=== PATIENT | female | born 1960 | race Caucasian/White ===

== ENCOUNTER 2021-10-09 14:38 | Inpatient (IN) | payer OTHER ==
[~2021-10-09 14:38] MED LIST: Iopamidol 370 76% 100 ML VIAL ONE
[2021-10-09 15:06] LABS: #Basophils 0.1 10x3/uL (0.0-0.2); #Eosinphils 1.3 10x3/uL (0.0-0.5); #Monocytes 0.6 10x3/uL (0.0-1.1); #Neutrophils 5.9 10x3/uL (1.5-8.4); %Basophils 0.4 % (0.0-2.0); %Eosinophils 11.3 % (0.0-6.0); %Monocytes 5.6 % (0.0-10.0); Hemoglobin 8.7 g/dL (12.0-15.5); Mean Corpuscular HGB CONC 26.1 g/dL (32.0-36.0); Mean Corpuscular Volume 80.2 fl (81.6-98.3); Mean Platelet Volume 9.2 fl (7.4-10.4); Platelet Count 368 10x3/uL (150-450); RBC Distribution Width 19.9 % (11.5-14.5); Red Blood Cell (RBC) Count 4.15 10x6/uL (3.90-5.03); White Blood Cell (WBC) Count 11.4 10x3/uL (3.5-10.5)
[2021-10-09 15:10] LABS: Actual Bicarbonate (HCO3a) 17.7 mEq/L (22-28); Base Excess (BEa) -11.7 mEq/L (-2.0 to +3.0); CO2 Tension 58.2 mmHg (35.0-45.0); Carboxyhemoglobin (COHb) 1.4 gm% (0.0-3.0); Hemoglobin (Hb) 9.5 g/dL (12.0-16.0); O2 Tension (PaO2), arterial 359.9 mmHg (> 80.0); Puncture Site RRA
[2021-10-09] MEDS ORDERED: Fentanyl 100 MCG/2 ML VIAL ONE (15:13)
[2021-10-09 15:21] LABS: ALT (SGPT) 97 U/L (8-55); AST (SGOT) 164 U/L (5-34); Albumin 3.6 g/dL (3.4-4.8); Alkaline Phosphatase 115 U/L (40-110); Anion Gap 22 mmol/L (10-20); BUN (Urea Nitrogen) 10 mg/dL (9.8-20.1); Bilirubin, Total 0.4 mg/dL (0.2-1.2); CK (CPK) 128 U/L (29-168); Calc. Creatinine Clearance 0 mL/min (70-130); Calcium 8.1 mg/dL (7.8-10.44); Carbon Dioxide 18 mmol/L (23-31); Chloride 108 mmol/L (98-107); Glucose 165 mg/dL (80-115); Lipase 72 U/L (8-78); Magnesium 2.3 mg/dL (1.6-2.6); Potassium 4.1 mmol/L (3.5-5.1); Protein, Total 6.6 g/dL (5.8-8.1); Sodium 144 mmol/L (136-145)
[2021-10-09] MEDS ORDERED: methylPREDNISolone Sod Succ/PF 125 MG/2 ML VIAL ONE (15:22)
[2021-10-09] MEDS ORDERED: EPINEPHrine 1 MG/ML AMP ONE (15:22)
[2021-10-09] MEDS ORDERED: diphenhydrAMINE 50 MG/ML VIAL ONE (15:22)
[2021-10-09] MEDS ORDERED: Famotidine/PF 20 mg/2ml Vial ONE (15:23)
[2021-10-09] MEDS ORDERED: Lorazepam 2 MG/ML VIAL ONE (15:38)
[2021-10-09] MEDS ORDERED: levETIRAcetam in NS 100 ML ONE (15:42)
[2021-10-09 15:46] LABS: Bilirubin Neg (Negative); Blood, Urine 150 (Negative); Clarity Slightly Cloudy (Clear); Glucose, Urine (Dipstick) 100 mg/dL (Negative); Ketone, Urine 5 mg/dL (Negative); Leukocyte Negative (Negative); Nitrite Negative (Negative); Protein, Urine (Dipstick) 500 mg/dl (Neg-Trace); Specific Gravity, Urine 1.015 (1.002-1.036); Urobilinogen Normal mg/dL (Less than 2)
[2021-10-09 15:52] LABS: SARS-CoV-2 NAA Rapid Test Not Detected (NotDetected)
[2021-10-09 16:00] LABS: RBC/HPF Greater than 50 HPF (0-3)
[2021-10-09 16:01] LABS: Bacteria/HPF 3+ HPF (None Seen); Mucous/LPF 1+ LPF (<2+); Squamous Epithelial 0-3 HPF (0-3)
[2021-10-09 16:05] LABS: Hypochromia SLIGHT = 6-15 cells (100X) (0-5/hpf)
[2021-10-09] MEDS ORDERED: Senokot S 8.6-50 MG TAB PO PRN (17:33)
[2021-10-09 18:00] LABS: Lactic Acid 2.3 mmol/L (0.5-2.2)
[2021-10-09] MEDS ORDERED: Fentanyl BOLUS 250 ML IVPB PRN (18:00)
[2021-10-09] MEDS ORDERED: VANCOMYCIN 1.75 GM/350 ML BAG 1.75 GM in Premix Bag 1 BAG IVPB SCH (18:15)
[2021-10-09] MEDS ORDERED: Vancomycin 1.5 GRAM/300 ML BAG 1.5 GM in Premix Bag 1 BAG IVPB SCH (18:30)
[2021-10-09] MEDS: Midazolam In 0.9 % NaCl/PF 100 MG in Premix Bag 1 BAG IVPB SCH (18:36)
[2021-10-09] MEDS ORDERED: hydrALAZINE 20 MG/ML VIAL SLOW IVP PRN (18:58)
[2021-10-09] MEDS: Furosemide 40 MG/4 ML VIAL SLOW IVP SCH (20:17)
[2021-10-09] MEDS: Famotidine 20 MG TAB PO SCH (20:17)
[2021-10-09] MEDS: Cefepime 2 GM in Sodium Chloride 0.9% 100 ML IVPB SCH (20:17)
[2021-10-09] MEDS ORDERED: Vancomycin 1 GM in Premix Bag 1 BAG IVPB SCH (21:00)
[2021-10-09 22:02] LABS: Troponin I 0.208 ng/mL (< 0.028)
[2021-10-10] MEDS: Lorazepam 2 MG/ML VIAL SLOW IVP PRN (02:20)
[2021-10-10 04:33] LABS: Hemoglobin 7.8 g/dL (12.0-15.5); Mean Corpuscular Hemoglobin 20.7 pg (27.0-33.0); Mean Platelet Volume 9.5 fl (7.4-10.4); Platelet Count 263 10x3/uL (150-450); RBC Distribution Width 20.1 % (11.5-14.5); Red Blood Cell (RBC) Count 3.77 10x6/uL (3.90-5.03); White Blood Cell (WBC) Count 9.4 10x3/uL (3.5-10.5)
[2021-10-10 04:39] LABS: ALT (SGPT) 88 U/L (8-55); AST (SGOT) 154 U/L (5-34); Albumin 3.4 g/dL (3.4-4.8); Alkaline Phosphatase 81 U/L (40-110); Anion Gap 17 mmol/L (10-20); BUN (Urea Nitrogen) 16 mg/dL (9.8-20.1); Bilirubin, Total 0.6 mg/dL (0.2-1.2); Calc. Creatinine Clearance 141 mL/min (70-130); Calcium 7.6 mg/dL (7.8-10.44); Carbon Dioxide 22 mmol/L (23-31); Chloride 108 mmol/L (98-107); Globulin 2.7 g/dL (2.4-3.5); Glucose 198 mg/dL (80-115); Potassium 3.3 mmol/L (3.5-5.1); Protein, Total 6.1 g/dL (5.8-8.1); Sodium 144 mmol/L (136-145)
[2021-10-10 05:08] LABS: MDiff Complete? YES; Manual Diff?? YES
[2021-10-10] MEDS: Levothyroxine Sodium 100 MCG TAB PO SCH (05:11)
[2021-10-10] MEDS: Levothyroxine Sodium 75 MCG TAB PO SCH (05:12)
[2021-10-10] MEDS: fentaNYL Citrate-0.9 % NaCl/PF 100 ML IVPB SCH (05:50)
[2021-10-10] MEDS ORDERED: VANCOMYCIN 1.25 GM/250 ML BAG 1.25 GM in Premix Bag 1 BAG IVPB SCH (06:00)
[2021-10-10 06:18] LABS: Band 22 % (5-11); Lymphocytes 2 % (21-51); Monocytes 7 % (0-10); Neutrophil 69 % (42-75); Nucleated RBC 1 % (0)
[2021-10-10 06:20] LABS: Anisocytosis SLIGHT = 6-15 cells (100X) (0-5/hpf); Elliptocytes SLIGHT = 2-5 cells (100X) (0-1/hpf); Hypochromia SLIGHT = 6-15 cells (100X) (0-5/hpf); Large Platelets SLIGHT; Macrocytosis SLIGHT = 6-15 cells (100X) (0-5/hpf); Microcytosis SLIGHT = 6-15 cells (100X) (0-5/hpf); Platelet Morphology Comment Appears Adequate; Polychromasia SLIGHT = 2-3 cells (100X) (0-2/hpf)
[2021-10-10 07:08] LABS: ALV-art Gradient 246.925 mmHg (0-20); Actual Bicarbonate (HCO3a) 28.6 mEq/L (22-28); Base Excess (BEa) 4.8 mEq/L (-2.0 to +3.0); CO2 Tension 38.7 mmHg (35.0-45.0); Calcium, Ionized (arterial) 0.99 mmol/L (1.12-1.30); Carboxyhemoglobin (COHb) 1.8 gm% (0.0-3.0); Hemoglobin (Hb) 8.1 g/dL (12.0-16.0); O2 Tension (PaO2), arterial 61.2 mmHg (> 80.0); Potassium - ABG Lab 3.2 mmol/L (3.70-5.30); Puncture Site LRA; pH, Arterial 7.49 (7.35-7.45)
[2021-10-10] MEDS: Potassium Chloride 20 MEQ in Premix Bag 1 BAG IVPB SCH ×2 (07:09→09:18)
[2021-10-10] MEDS ORDERED: Potassium Chloride 10 MEQ in Premix Bag 1 BAG IVPB SCH (08:00)
[2021-10-10] MEDS ORDERED: LEVOTHYROXINE SODIUM 175 MCG PO SCH (09:00)
[2021-10-10] MEDS: Enoxaparin Sodium 40 MG/0.4 ML SYRINGE SC SCH (09:17)
[2021-10-10] MEDS: Cefepime 2 GM in Sodium Chloride 0.9% 100 ML IVPB SCH ×2 (09:18→20:28)
[2021-10-10] MEDS: Furosemide 40 MG/4 ML VIAL SLOW IVP SCH ×2 (09:19→20:28)
[2021-10-10] MEDS: Famotidine 20 MG TAB PO SCH (09:19)
[2021-10-10] MEDS: Pantoprazole 40 MG VIAL IVP SCH (09:20)
[2021-10-10] MEDS ORDERED: HumaLOG 300 UNITS/3 ML VIAL SC PRN (09:20)
[2021-10-10] MEDS ORDERED: Dextrose 50% Abboject 50 ML SYRINGE SLOW IVP PRN (09:20)
[2021-10-10] MEDS ORDERED: Dextrose 5% in Water 1,000 ML IV PRN (09:20)
[2021-10-10] MEDS: Atorvastatin Calcium 40 MG TAB PO SCH (09:21)
[2021-10-10 10:07] LABS: Magnesium 1.9 mg/dL (1.6-2.6)
[2021-10-10 10:12] LABS: Troponin I 0.138 ng/mL (< 0.028)
[2021-10-10] MEDS: Midazolam In 0.9 % NaCl/PF 100 MG in Premix Bag 1 BAG IVPB SCH (11:20)
[2021-10-10 11:44] LABS: Glucose 155 mg/dL (80-115)
[2021-10-10 18:26] LABS: Glucose 110 mg/dL (80-115)
[2021-10-11 00:21] LABS: Glucose 127 mg/dL (80-115)
[2021-10-11] MEDS: Levothyroxine Sodium 100 MCG TAB PO SCH (05:50)
[2021-10-11] MEDS: Levothyroxine Sodium 75 MCG TAB PO SCH (05:50)
[2021-10-11 06:01] LABS: ALV-art Gradient 227.825 mmHg (0-20); Actual Bicarbonate (HCO3a) 26.5 mEq/L (22-28); Base Excess (BEa) 2.5 mEq/L (-2.0 to +3.0); CO2 Tension 38.3 mmHg (35.0-45.0); Calcium, Ionized (arterial) 1.05 mmol/L (1.12-1.30); Carboxyhemoglobin (COHb) 1.7 gm% (0.0-3.0); Critical Notified By: CP.PH; Hemoglobin (Hb) 8.4 g/dL (12.0-16.0); O2 Tension (PaO2), arterial 80.8 mmHg (> 80.0); Potassium - ABG Lab 3.3 mmol/L (3.70-5.30); Puncture Site RRA; RapidComm Collect By CP.PH; pH, Arterial 7.46 (7.35-7.45)
[2021-10-11 06:26] LABS: Hemoglobin 7.8 g/dL (12.0-15.5); Mean Corpuscular HGB CONC 28.1 g/dL (32.0-36.0); Mean Corpuscular Volume 74.9 fl (81.6-98.3); Platelet Count 223 10x3/uL (150-450); RBC Distribution Width 20.6 % (11.5-14.5); Red Blood Cell (RBC) Count 3.71 10x6/uL (3.90-5.03)
[2021-10-11 06:39] LABS: ALT (SGPT) 61 U/L (8-55); AST (SGOT) 65 U/L (5-34); Albumin 3.5 g/dL (3.4-4.8); Alkaline Phosphatase 78 U/L (40-110); Anion Gap 15 mmol/L (10-20); BUN (Urea Nitrogen) 16 mg/dL (9.8-20.1); Bilirubin, Total 0.6 mg/dL (0.2-1.2); Calc. Creatinine Clearance 133 mL/min (70-130); Carbon Dioxide 27 mmol/L (23-31); Chloride 110 mmol/L (98-107); Globulin 3.1 g/dL (2.4-3.5); Glucose 131 mg/dL (80-115); Magnesium 2.2 mg/dL (1.6-2.6); Phosphorus 2.1 mg/dL (2.3-4.7); Potassium 3.5 mmol/L (3.5-5.1); Protein, Total 6.6 g/dL (5.8-8.1); Sodium 148 mmol/L (136-145)
[2021-10-11 06:48] LABS: Troponin I 0.057 ng/mL (< 0.028)
[2021-10-11 07:01] LABS: Mean Platelet Volume 9.4 fl (7.4-10.4)
[2021-10-11 07:02] LABS: MDiff Complete? YES
[2021-10-11 07:04] LABS: Anisocytosis SLIGHT = 6-15 cells (100X) (0-5/hpf); Hypochromia MODERATE=16-30 cells (100X) (0-5/hpf); Macrocytosis SLIGHT = 6-15 cells (100X) (0-5/hpf); Microcytosis SLIGHT = 6-15 cells (100X) (0-5/hpf); Poikilocytosis SLIGHT = 6-15 cells (100X) (0-5/hpf)
[2021-10-11 07:05] LABS: Large Platelets SLIGHT; Ovalocytes SLIGHT = 2-5 cells (100X) (0-1/hpf); Schistocytes SLIGHT = 2-5 cells (100X) (0-1/hpf); Stomatocytes SLIGHT = 2-5 cells (100X) (0-1/hpf)
[2021-10-11 07:06] LABS: Platelet Morphology Comment Appears Adequate
[2021-10-11 07:09] LABS: Band 5 % (5-11); Lymphocytes 11 % (21-51); Monocytes 13 % (0-10); Neutrophil 70 % (42-75); Reactive Lymphocytes 1 % (0-10)
[2021-10-11] MEDS: Enoxaparin Sodium 40 MG/0.4 ML SYRINGE SC SCH (08:08)
[2021-10-11] MEDS: Atorvastatin Calcium 40 MG TAB PO SCH (08:08)
[2021-10-11] MEDS: Cefepime 2 GM in Sodium Chloride 0.9% 100 ML IVPB SCH ×2 (08:08→21:33)
[2021-10-11] MEDS: Furosemide 40 MG/4 ML VIAL SLOW IVP SCH ×2 (08:08→21:34)
[2021-10-11] MEDS: Pantoprazole 40 MG VIAL IVP SCH (08:08)
[2021-10-11] MEDS ORDERED: HumaLOG 300 UNITS/3 ML VIAL SC PRN (09:30)
[2021-10-11] MEDS: acetaZOLAMIDE Sodium 500 mg Vial IVP SCH (09:36)
[2021-10-11] MEDS ORDERED: Sterile Water 10 ML ONE (09:41)
[2021-10-11] MEDS ORDERED: Potassium Bicarbonate/Cit Ac 20 MEQ TAB PER TUBE SCH (10:30)
[2021-10-11] MEDS: Acetaminophen 325 MG TAB PO PRN (13:27)
[2021-10-11 15:59] VITALS: TEMP 101.2
[2021-10-11] MEDS: Carvedilol 6.25 MG TAB PER TUBE SCH (17:18)
[2021-10-12 04:56] LABS: #Monocytes 0.7 10x3/uL (0.0-1.1); #Neutrophils 6.4 10x3/uL (1.5-8.4); %Basophils 0.4 % (0.0-2.0); %Eosinophils 0.2 % (0.0-6.0); %Lymphocytes 10.7 % (18.0-47.0); %Monocytes 8.6 % (0.0-10.0); %Neutrophils 79.4 % (40.0-75.0); Hemoglobin 7.6 g/dL (12.0-15.5); Mean Corpuscular HGB CONC 27.7 g/dL (32.0-36.0); Mean Corpuscular Hemoglobin 20.9 pg (27.0-33.0); Mean Corpuscular Volume 75.5 fl (81.6-98.3); Mean Platelet Volume 9.3 fl (7.4-10.4); Platelet Count 235 10x3/uL (150-450); RBC Distribution Width 20.3 % (11.5-14.5); Red Blood Cell (RBC) Count 3.63 10x6/uL (3.90-5.03)
[2021-10-12 05:00] LABS: ALT (SGPT) 40 U/L (8-55); AST (SGOT) 40 U/L (5-34); Albumin 3.4 g/dL (3.4-4.8); Alkaline Phosphatase 74 U/L (40-110); Anion Gap 13 mmol/L (10-20); BUN (Urea Nitrogen) 16 mg/dL (9.8-20.1); Bilirubin, Total 0.6 mg/dL (0.2-1.2); Calc. Creatinine Clearance 133 mL/min (70-130); Calcium 8.3 mg/dL (7.8-10.44); Carbon Dioxide 24 mmol/L (23-31); Chloride 112 mmol/L (98-107); Globulin 3.1 g/dL (2.4-3.5); Glucose 131 mg/dL (80-115); Potassium 3.4 mmol/L (3.5-5.1); Protein, Total 6.5 g/dL (5.8-8.1); Sodium 146 mmol/L (136-145)
[2021-10-12 05:12] LABS: ALV-art Gradient 191.875 mmHg (0-20); Actual Bicarbonate (HCO3a) 24.2 mEq/L (22-28); Base Excess (BEa) 0.2 mEq/L (-2.0 to +3.0); CO2 Tension 36.3 mmHg (35.0-45.0); Calcium, Ionized (arterial) 1.13 mmol/L (1.12-1.30); Carboxyhemoglobin (COHb) 1.8 gm% (0.0-3.0); Critical Notified By: CP.PH; Hemoglobin (Hb) 8.6 g/dL (12.0-16.0); O2 Tension (PaO2), arterial 83.6 mmHg (> 80.0); Potassium - ABG Lab 3.2 mmol/L (3.70-5.30); Puncture Site RRA; RapidComm Collect By CP.PH; pH, Arterial 7.44 (7.35-7.45)
[2021-10-12] MEDS: Levothyroxine Sodium 100 MCG TAB PO SCH (05:26)
[2021-10-12] MEDS: Levothyroxine Sodium 75 MCG TAB PO SCH (05:27)
[2021-10-12] MEDS: Cefepime 2 GM in Sodium Chloride 0.9% 100 ML IVPB SCH ×2 (10:26→20:59)
[2021-10-12] MEDS: Furosemide 40 MG/4 ML VIAL SLOW IVP SCH ×2 (10:26→20:59)
[2021-10-12] MEDS: Enoxaparin Sodium 40 MG/0.4 ML SYRINGE SC SCH (10:27)
[2021-10-12] MEDS: Atorvastatin Calcium 40 MG TAB PO SCH (10:27)
[2021-10-12] MEDS: Pantoprazole 40 MG VIAL IVP SCH (10:27)
[2021-10-12] MEDS: Carvedilol 6.25 MG TAB PER TUBE SCH ×2 (10:27→16:12)
[2021-10-12] MEDS: acetaZOLAMIDE Sodium 500 mg Vial IVP SCH (10:27)
[2021-10-12] MEDS: fentaNYL Citrate-0.9 % NaCl/PF 100 ML IVPB SCH (10:28)
[2021-10-12] MEDS: Potassium Bicarbonate/Cit Ac 20 MEQ TAB PER TUBE SCH (10:28)
[2021-10-12 12:02] VITALS: BMI 37.0
[2021-10-12] MEDS: Acetaminophen 325 MG TAB PO PRN (15:58)
[2021-10-13 04:07] LABS: #Eosinphils 0.1 10x3/uL (0.0-0.5); #Monocytes 0.8 10x3/uL (0.0-1.1); %Basophils 0.3 % (0.0-2.0); %Eosinophils 1.7 % (0.0-6.0); %Lymphocytes 10.1 % (18.0-47.0); %Monocytes 11.9 % (0.0-10.0); %Neutrophils 75.8 % (40.0-75.0); Hemoglobin 7.9 g/dL (12.0-15.5); Mean Corpuscular HGB CONC 26.9 g/dL (32.0-36.0); Mean Corpuscular Hemoglobin 20.6 pg (27.0-33.0); Mean Corpuscular Volume 76.8 fl (81.6-98.3); Mean Platelet Volume 9.2 fl (7.4-10.4); Platelet Count 203 10x3/uL (150-450); RBC Distribution Width 20.3 % (11.5-14.5); Red Blood Cell (RBC) Count 3.83 10x6/uL (3.90-5.03); White Blood Cell (WBC) Count 6.6 10x3/uL (3.5-10.5)
[2021-10-13 04:17] LABS: ALT (SGPT) 30 U/L (8-55); AST (SGOT) 35 U/L (5-34); Albumin 3.4 g/dL (3.4-4.8); Alkaline Phosphatase 72 U/L (40-110); Anion Gap 16 mmol/L (10-20); BUN (Urea Nitrogen) 23 mg/dL (9.8-20.1); Bilirubin, Total 0.6 mg/dL (0.2-1.2); Calc. Creatinine Clearance 137 mL/min (70-130); Calcium 8.6 mg/dL (7.8-10.44); Carbon Dioxide 22 mmol/L (23-31); Chloride 112 mmol/L (98-107); Globulin 3.3 g/dL (2.4-3.5); Glucose 149 mg/dL (80-115); Potassium 3.5 mmol/L (3.5-5.1); Protein, Total 6.7 g/dL (5.8-8.1); Sodium 146 mmol/L (136-145)
[2021-10-13 04:52] LABS: ALV-art Gradient 125.025 mmHg (0-20); Actual Bicarbonate (HCO3a) 23.7 mEq/L (22-28); Base Excess (BEa) -0.5 mEq/L (-2.0 to +3.0); CO2 Tension 37.1 mmHg (35.0-45.0); Calcium, Ionized (arterial) 1.17 mmol/L (1.12-1.30); Carboxyhemoglobin (COHb) 1.5 gm% (0.0-3.0); Critical Notified By: CP.PH; Hemoglobin (Hb) 8.9 g/dL (12.0-16.0); O2 Tension (PaO2), arterial 113.8 mmHg (> 80.0); Potassium - ABG Lab 3.5 mmol/L (3.70-5.30); Puncture Site RRA; RapidComm Collect By CP.PH; pH, Arterial 7.42 (7.35-7.45)
[2021-10-13] MEDS: Levothyroxine Sodium 100 MCG TAB PO SCH (06:23)
[2021-10-13] MEDS: Levothyroxine Sodium 75 MCG TAB PO SCH (06:23)
[2021-10-13] MEDS: Cefepime 2 GM in Sodium Chloride 0.9% 100 ML IVPB SCH (08:29)
[2021-10-13] MEDS: Carvedilol 6.25 MG TAB PER TUBE SCH ×2 (08:29→17:26)
[2021-10-13] MEDS: Atorvastatin Calcium 40 MG TAB PO SCH (08:29)
[2021-10-13] MEDS: Enoxaparin Sodium 40 MG/0.4 ML SYRINGE SC SCH (08:30)
[2021-10-13] MEDS: Potassium Bicarbonate/Cit Ac 20 MEQ TAB PER TUBE SCH (08:31)
[2021-10-13] MEDS: Pantoprazole 40 MG VIAL IVP SCH (08:31)
[2021-10-13] MEDS: Furosemide 40 MG/4 ML VIAL SLOW IVP SCH (08:31)
[2021-10-13] MEDS: acetaZOLAMIDE Sodium 500 mg Vial IVP SCH (08:34)
[2021-10-13] MEDS: Lorazepam 2 MG/ML VIAL SLOW IVP PRN ×4 (09:46→17:34)
[2021-10-13 13:52] VITALS: BP 130/51
[2021-10-13] MEDS ORDERED: Morphine 2 MG/ML VIAL SLOW IVP PRN (16:54)
== END 2021-10-13 20:45 | disposition expired | DRG 291 ==
LOC: CSHERS 14:38 → CSHIMCU 17:32
PROVIDERS: ADMIT Hospitalist; ATTEND Internal Medicine
PROC: 5A1945Z Respiratory Ventilation, 24-96 Consecutive Hours (ICD-10-PCS; 2021-10-09)
PROC: 0BH18EZ Insertion of Endotracheal Airway into Trachea, Via Natural or Artificial Opening Endoscopic (ICD-10-PCS; 2021-10-09)
PROC: 3E033XZ Introduction of Vasopressor into Peripheral Vein, Percutaneous Approach (ICD-10-PCS; 2021-10-10)
PROC: 4A10X4Z Monitoring of Central Nervous Electrical Activity, External Approach (ICD-10-PCS; principal; 2021-10-11)
PROC: 0W9930Z Drainage of Right Pleural Cavity with Drainage Device, Percutaneous Approach (ICD-10-PCS; 2021-10-12)
DX: I11.0 Hypertensive heart disease with heart failure (principal); J96.01 Acute respiratory failure with hypoxia; I50.43 Acute on chronic combined systolic (congestive) and diastolic (congestive) heart failure; E87.4 Mixed disorder of acid-base balance; G93.1 Anoxic brain damage, not elsewhere classified; J93.9 Pneumothorax, unspecified; I24.8 Other forms of acute ischemic heart disease; T78.2XXA Anaphylactic shock, unspecified, initial encounter; E66.01 Morbid (severe) obesity due to excess calories; G25.3 Myoclonus; Z20.822 Contact with and (suspected) exposure to COVID-19; E87.6 Hypokalemia; E03.9 Hypothyroidism, unspecified; E03.3 Postinfectious hypothyroidism; D64.9 Anemia, unspecified; I46.2 Cardiac arrest due to underlying cardiac condition; R56.9 Unspecified convulsions; J43.9 Emphysema, unspecified; Z51.5 Encounter for palliative care; Z91.012 Allergy to eggs; Z91.018 Allergy to other foods; Z88.5 Allergy status to narcotic agent; Z88.8 Allergy status to other drugs, medicaments and biological substances; Z79.899 Other long term (current) drug therapy; Z90.49 Acquired absence of other specified parts of digestive tract; Z90.710 Acquired absence of both cervix and uterus; Z87.891 Personal history of nicotine dependence; Z68.36 Body mass index [BMI] 36.0-36.9, adult; Z99.81 Dependence on supplemental oxygen
CPT/HCPCS: 36415; 36416; 36600; 70450; 71045; 71250; 71275; 80053; 81003; 81015; 82550; 82805; 83605; 83690; 83735; 83880; 84100; 84443; 84484; 85025; 86850; 86900; 86901; 87070; 87205; 87324; 87449; 93005; 93010; 93306; 94002; 94003; 94640; 94760; 95819; 95957; C9113; J0171; J0692; J1120; J1200; J1650; J1940; J1953; J2060; J2270; J2930; J3010; J3370; J3480; J3490; J7620; Q9967; S0028; U0002